=== PATIENT | male | born 1990 | race Caucasian/White ===

== ENCOUNTER 2017-08-19 09:56 | Emergency (ER) | payer OTHER ==
--- NOTE | 2017-08-19 11:35 | EDM.PDOC ---
ED HPI GENERAL MEDICAL PROBLEM - General Chief Complaint: ENT Problem Stated Complaint: [id number] PINK EYE Time Seen by Provider: 08/19/17 11:35 Source of Information: Reports: Patient, RN, RN Notes Reviewed History Limitations: Reports: No Limitations - History of Present Illness INITIAL COMMENTS - FREE TEXT/NARRATIVE: LUZ pt presents from [facility] with c/o 2 weeks of allergies and irritated eyes. He states he was taking loratidine for allergies, but it stopped working. Over the past couple of days the eyes have worsened and he has developed yellow matting. Denies visual changes or eye pain. Onset: Gradual Duration: Week(s): (2), Getting Worse Location: Reports: Other (eyes) Quality: Reports: Other (irritated) Severity: Moderate Improves with: Reports: None Worsens with: Reports: None Associated Symptoms: Reports: No Other Symptoms - Related Data Allergies Allergy/AdvReac Type Severity Reaction Status Date / Time No Known Allergies Allergy Verified 08/19/17 10:28 Home Meds: Home Meds . [No Known Home Meds] 08/19/17 [History] Past Medical History Genitourinary History: Reports: Other (See Below) Other Genitourinary History: surgery for yamilet anal cyst Social & Family History - Family History Family Medical History: Noncontributory - Tobacco Use Smoking Status *Q: Never Smoker - Recreational Drug Use Recreational Drug Use: No - Living Situation & Occupation Living situation: Reports: Other (live in [place], [place]) Occupation: Employed ED ROS GENERAL - Review of Systems Review Of Systems: ROS reveals no pertinent complaints other than HPI. ED EXAM GENERAL W FULL EYE - Physical Exam Exam: See Below Exam Limited By: No Limitations General Appearance: Alert, WD/WN, No Apparent Distress Eye Exam: Bilateral Eye: Conjunctival Injection (with yellow matting), EOMI, PERRL Eyelids: Bilateral: Normal Appearance Conjunctiva & Sclera: Bilateral: Discharge (yellow matting), Injected Cornea Exam: Bilateral: Normal Appearance Extraocular Movements: Bilateral: Intact Pupils: Normal Accommodation Pupillary Size: Bilateral: 4 mm Pupillary Reaction: Bilateral: Brisk Ears: Normal External Exam, Normal Canal, Hearing Grossly Normal, Normal TMs Nose: No Blood, Nasal Drainage (mild clear nasal mucus) Throat/Mouth: Normal Inspection, Normal Lips, Normal Teeth, Normal Gums, Normal Oropharynx, Normal Voice, No Airway Compromise Head: Atraumatic, Normocephalic Neck: Normal Inspection, Supple, Non-Tender, Full Range of Motion. No: Lymphadenopathy (L), Lymphadenopathy (R) Respiratory/Chest: No Respiratory Distress, Lungs Clear, Normal Breath Sounds, No Accessory Muscle Use, Chest Non-Tender Cardiovascular: Regular Rate, Rhythm Neurological: Alert, Oriented, CN II-XII Intact, Normal Cognition, Normal Gait, No Motor/Sensory Deficits Psychiatric: Normal Affect, Normal Mood Skin Exam: Warm, Dry, Intact, Normal Color, No Rash Course - Vital Signs Last Recorded V/S: Last Vital Signs Temp 36.6 C 08/19/17 10:25 Pulse 84 08/19/17 10:25 Resp 14 08/19/17 10:25 BP 127/84 08/19/17 10:25 Pulse Ox 100 08/19/17 10:25 - Orders/Labs/Meds Orders: Active Orders 24 hr Category Date Time Status Gentamicin [Garamycin 0.3% Ophth Soln] Med 08/19/17 11:39 Once 1 ml EYEBOTH ONETIME ONE Departure - Departure Time of Disposition: 11:44 Disposition: Home, Self-Care 01 Condition: Good Clinical Impression: Environmental allergies Conjunctivitis Qualifiers: Conjunctivitis type: acute Acute conjunctivitis type: bacterial Laterality: bilateral Qualified Code(s): H10.33 - Unspecified acute conjunctivitis, bilateral - Discharge Information Instructions: Bacterial Conjunctivitis, [id number], Allergies, Adult, Easy-to -Read Referrals: PCP,None [Primary Care Provider] - Forms: ED Department Discharge Additional Instructions: Gentamicin Ophthalmic Solution 0.3%: One drop into both eyes four times a day for five days. May use over the counter Zyrtec (Cetirizine) 10mg: One tablet daily as needed for allergies. Follow up in clinic if not improved in 3 to 5 days. - My Orders Last 24 Hours: My Active Orders 08/19/17 11:39 Gentamicin [Garamycin 0.3% Ophth Soln] 1 ml EYEBOTH ONETIME ONE - Assessment/Plan Last 24 Hours: My Active Orders 08/19/17 11:39 Gentamicin [Garamycin 0.3% Ophth Soln] 1 ml EYEBOTH ONETIME ONE
[2017-08-19] MEDS ORDERED: Gentamicin 0.3% Ophth Soln 5 ML Bottle EYEBOTH ONE (11:39)
== END 2017-08-19 11:57 | disposition home or self-care (01) ==
LOC: DL.ED 09:56
DX: T78.40XA Allergy, unspecified, initial encounter (principal); H10.33 Unspecified acute conjunctivitis, bilateral
CPT/HCPCS: 99282; A9270

== ENCOUNTER 2017-08-26 09:06 | Emergency (ER) | payer OTHER ==
--- NOTE | 2017-08-26 09:35 | EDM.PDOC ---
ED HPI GENERAL MEDICAL PROBLEM - General Chief Complaint: Eye Problems Stated Complaint: [id number] PINK EYE AT TRAINING Time Seen by Provider: 08/26/17 09:27 Source of Information: Reports: Patient History Limitations: Reports: No Limitations - History of Present Illness INITIAL COMMENTS - FREE TEXT/NARRATIVE: This 27 yo male patient reports to the ED due to redness in his eyes and yellowish drainage in the mornings. The patient is in the [employer] and has been doing field exercises. The patient was seen in the ED 7 days ago for pink eye and has been using the antibiotic drops as directed, but continues to have symptoms. The patient reports that he has not take Zyrtec, but has continued to take Claritin. Onset: Gradual Duration: Week(s):, Constant Location: Reports: Face Quality: Reports: Other Severity: Moderate Improves with: Reports: None Worsens with: Reports: None Associated Symptoms: Reports: No Other Symptoms - Related Data Allergies Allergy/AdvReac Type Severity Reaction Status Date / Time No Known Allergies Allergy Verified 08/26/17 09:12 Home Meds: Home Meds Gentamicin [Garamycin 0.3% Ophth Soln] 5 ml EYEBOTH QID 08/26/17 [History] Past Medical History Genitourinary History: Reports: Other (See Below) Other Genitourinary History: surgery for yamilet anal cyst - Infectious Disease History Infectious Disease History: Reports: Chicken Pox - Past Surgical History HEENT Surgical History: Reports: Other (See Below) Other HEENT Surgeries/Procedures: wisdom teeth removed Social & Family History - Family History Family Medical History: Noncontributory - Tobacco Use Smoking Status *Q: Never Smoker Second Hand Smoke Exposure: No - Recreational Drug Use Recreational Drug Use: No - Living Situation & Occupation Living situation: Reports: Other (live in [place], [place]) Occupation: Employed ED ROS GENERAL - Review of Systems Review Of Systems: ROS reveals no pertinent complaints other than HPI. ED EXAM GENERAL W FULL EYE - Physical Exam Exam: See Below Exam Limited By: No Limitations General Appearance: Alert, WD/WN, No Apparent Distress Eye Exam: Bilateral Eye: Conjunctival Injection, Normal Inspection, PERRL Eyelids: Bilateral: Normal Appearance Conjunctiva & Sclera: Bilateral: Injected Cornea Exam: Bilateral: Normal Appearance Pupils: Normal Accommodation Pupillary Reaction: Bilateral: Brisk Anterior Chamber: Bilateral: Normal Appearance Ears: Normal External Exam, Normal Canal, Hearing Grossly Normal, Normal TMs Nose: Normal Inspection, Normal Mucosa, No Blood Throat/Mouth: Normal Inspection, Normal Lips, Normal Teeth, Normal Gums, Normal Oropharynx, Normal Voice, No Airway Compromise Head: Atraumatic, Normocephalic Neck: Normal Inspection, Supple, Non-Tender, Full Range of Motion Respiratory/Chest: No Respiratory Distress, Lungs Clear, Normal Breath Sounds, No Accessory Muscle Use, Chest Non-Tender Cardiovascular: Normal Peripheral Pulses, Regular Rate, Rhythm, No Edema, No Gallop, No JVD, No Murmur, No Rub GI/Abdominal: Normal Bowel Sounds, Soft, Non-Tender, No Organomegaly, No Distention, No Abnormal Bruit, No Mass (Male) Exam: Deferred Rectal (Males) Exam: Deferred Back Exam: Normal Inspection, Full Range of Motion, NT Extremities: Normal Inspection, Normal Range of Motion, Non-Tender, Normal Capillary Refill, No Pedal Edema Neurological: Alert, Oriented, CN II-XII Intact, Normal Cognition, Normal Gait, Normal Reflexes, No Motor/Sensory Deficits Psychiatric: Normal Affect, Normal Mood Skin Exam: Warm, Dry, Intact, Normal Color, No Rash Lymphatic: No Adenopathy Course - Vital Signs Last Recorded V/S: Last Vital Signs Temp 36.9 C 08/26/17 09:10 Pulse 79 08/26/17 09:10 Resp 18 08/26/17 09:10 BP 150/84 H 08/26/17 09:10 Pulse Ox 100 08/26/17 09:10 Departure - Departure Time of Disposition: 09:32 Disposition: Home, Self-Care 01 Condition: Fair Clinical Impression: Conjunctivitis Qualifiers: Conjunctivitis type: acute Acute conjunctivitis type: bacterial Laterality: bilateral Qualified Code(s): H10.33 - Unspecified acute conjunctivitis, bilateral - Discharge Information Instructions: Bacterial Conjunctivitis, [id number] Referrals: PCP,None [Primary Care Provider] - Forms: ED Department Discharge Care Plan Goals: The patient was advised of the examination results during the visit. The patient was discharged with a script for Polytrim to apply 1 drop in each eye 4 times per day for 10 days. The patient should take Zyrtec daily for allergy relief. If the patient has any additional symptoms or concerns, the patient should follow-up with his primary care facility or return to the emergency department.
== END 2017-08-26 09:38 | disposition home or self-care (01) ==
LOC: DL.ED 09:06
DX: H10.33 Unspecified acute conjunctivitis, bilateral (principal)
CPT/HCPCS: 99282

== ENCOUNTER 2019-09-19 08:52 | Emergency (ER) | payer BC, OTHER ==
--- NOTE | 2019-09-19 09:26 | EDM.PDOC ---
ED HPI GENERAL MEDICAL PROBLEM - General Chief Complaint: Lower Extremity Injury/Pain Stated Complaint: injured right foot Time Seen by Provider: 09/19/19 09:15 Source of Information: Reports: Patient History Limitations: Reports: No Limitations - History of Present Illness INITIAL COMMENTS - FREE TEXT/NARRATIVE: This 29 yo male patient reports to the ED with right lateral foot pain. The patient reports his pain started yesterday morning at about 1130. The patient reports prior to the increased pain, he had done an 11 mile may with a 40 pound pack on his back. The patient reports increased pain with weigh bearing activity. The patient has been taking NSAIDs with little to no symptom relief. Onset Date: 09/18/19 Onset Time: 11:30 Duration: Constant Location: Reports: Lower Extremity, Right Quality: Reports: Ache, Sharp Severity: Moderate Improves with: Reports: Rest Worsens with: Reports: Movement Context: Reports: Activity Associated Symptoms: Reports: No Other Symptoms Right Foot Pain Score (Numeric/FACES): 10 - Related Data Allergies Allergy/AdvReac Type Severity Reaction Status Date / Time No Known Allergies Allergy Verified 09/19/19 09:11 Home Meds: Home Meds Ibuprofen [Ibu-200] 200 mg PO ASDIRECTED 09/19/19 [History] Naproxen Sodium [Aleve] 2 mg PO ASDIRECTED 09/19/19 [History] Past Medical History Genitourinary History: Reports: Other (See Below) Other Genitourinary History: surgery for yamilet anal cyst - Infectious Disease History Infectious Disease History: Reports: Chicken Pox - Past Surgical History HEENT Surgical History: Reports: Other (See Below) Other HEENT Surgeries/Procedures: wisdom teeth removed Social & Family History - Family History Family Medical History: Noncontributory - Living Situation & Occupation Living situation: Reports: Other (live in [place], [place]) Occupation: Employed Review of Systems - Review of Systems Review Of Systems: Comprehensive ROS is negative, except as noted in HPI. ED EXAM, GENERAL - Physical Exam Exam: See Below Exam Limited By: No Limitations General Appearance: Alert, WD/WN, Moderate Distress Eye Exam: Bilateral Eye: EOMI, Normal Inspection, PERRL Ears: Normal External Exam, Normal Canal, Hearing Grossly Normal, Normal TMs Nose: Normal Inspection, Normal Mucosa, No Blood Throat/Mouth: Normal Inspection, Normal Lips, Normal Teeth, Normal Gums, Normal Oropharynx, Normal Voice, No Airway Compromise Head: Atraumatic, Normocephalic Neck: Normal Inspection, Supple, Non-Tender, Full Range of Motion Respiratory/Chest: No Respiratory Distress, Lungs Clear, Normal Breath Sounds, No Accessory Muscle Use, Chest Non-Tender Cardiovascular: Normal Peripheral Pulses, Regular Rate, Rhythm, No Edema, No Gallop, No JVD, No Murmur, No Rub GI/Abdominal: Normal Bowel Sounds, Soft, Non-Tender, No Organomegaly, No Distention, No Abnormal Bruit, No Mass (Male) Exam: Deferred Rectal (Males) Exam: Deferred Back Exam: Normal Inspection, Full Range of Motion, NT Extremities: Leg Pain (Right lateral foot pain with redness and swelling) Neurological: Alert, Oriented, CN II-XII Intact, Normal Cognition, Normal Gait, Normal Reflexes, No Motor/Sensory Deficits Psychiatric: Normal Affect, Normal Mood Skin Exam: Warm, Dry, Intact, Normal Color, No Rash Lymphatic: No Adenopathy Course - Vital Signs Last Recorded V/S: Last Vital Signs Temp 36.6 C 09/19/19 09:04 Pulse 81 09/19/19 09:04 Resp 18 09/19/19 09:04 BP 135/72 09/19/19 09:04 Pulse Ox - Orders/Labs/Meds Orders: Active Orders 24 hr Category Date Time Status DME for Discharge [COMM] Urgent Oth 09/19/19 10:06 Ordered Departure - Departure Time of Disposition: 10:07 Disposition: Home, Self-Care 01 Condition: Fair Clinical Impression: Swelling of right foot Right foot strain Qualifiers: Encounter type: initial encounter Qualified Code(s): S96.911A - Strain of unspecified muscle and tendon at ankle and foot level, right foot, initial encounter - Discharge Information *PRESCRIPTION DRUG MONITORING PROGRAM REVIEWED*: Not Applicable *COPY OF PRESCRIPTION DRUG MONITORING REPORT IN PATIENT JODIE: Not Applicable Instructions: Elastic Bandage and RICE Therapy, Repetitive Strain Injuries Forms: ED Department Discharge Care Plan Goals: The patient was advised of the examination and x-ray results during the visit. The patient was encouraged to rest, ice, compress and elevate the extremity over the next 48 hours. The patient may take Tylenol or ibuprofen as directed for temporary symptom relief. If the patient has any additional symptoms or concerns, the patient should either return to the emergency department or visit his primary care facility. Sepsis Event Note (ED) - Evaluation Sepsis Screening Result: No Definite Risk - Focused Exam Vital Signs: Vital Signs Temp Pulse Resp BP 09/19/19 09:04 36.6 C 81 18 135/72 09/19/19 09:00 88 18 125/70 - My Orders Last 24 Hours: My Active Orders 09/19/19 10:06 DME for Discharge [COMM] Urgent - Assessment/Plan Last 24 Hours: My Active Orders 09/19/19 10:06 DME for Discharge [COMM] Urgent
--- NOTE | 2019-09-19 10:01 | CR ---
PROCEDURE INFORMATION: Exam: XR Right Foot Complete Exam date and time: 09/19/2019 9:38 AM Age: 29 years old Clinical indication: Pain; Foot; Right; Additional info: Right lateral foot pain TECHNIQUE: Imaging protocol: XR Right foot. Views: 3 or more views. COMPARISON: No relevant prior studies available. FINDINGS: Bones/joints: No acute fracture or dislocation is identified. There is no osseous erosion or cortical destruction. No focal lytic or blastic lesion is identified. Soft tissues: The soft tissues appear grossly unremarkable. IMPRESSION: Unremarkable radiographic appearance of the right foot.
== END 2019-09-19 10:15 | disposition home or self-care (01) ==
LOC: DL.ED 08:52
DX: S96.911A Strain of unspecified muscle and tendon at ankle and foot level, right foot, initial encounter (principal); X58.XXXA Exposure to other specified factors, initial encounter
CPT/HCPCS: 73630-RT; 99283